=== PATIENT | female | born 1935 | race Caucasian/White ===

== ENCOUNTER 2021-12-29 15:47 | Emergency (ER) | payer OTHER ==
[~2021-12-29] VITALS: Ht 144 cm; Wt 71.7 kg
[2021-12-29 15:56] VITALS: BP 158/89
--- NOTE | 2021-12-29 16:09 | NUR ---
PT AMB WITH ASSISTANCE TO BED 12.
--- NOTE | 2021-12-29 16:44 | NUR ---
BIB DAUGHTER C/O 610 HEAD/NECK PAIN X 2 DAYS. BLOOD SUGAR 145 , BP 158/89 AT THIS TIME. SEEN BY PCP 4 DAYS AGO FOR UTI & GOT CIPRO. PMH: DM, HLD, HTN, [place].
--- NOTE | 2021-12-29 17:06 | NUR ---
pt taken to ct via wheelchair
[2021-12-29] MEDS ORDERED: KETOROLAC 60 MG/2 ML VIAL IM ONE (17:45)
--- NOTE | 2021-12-29 18:28 | NUR ---
Patient appears to be resting comfortably in bed. Vital Signs within normal limits. Respirations even and unlabored.
[2021-12-29] MEDS ORDERED: IBUP-2213 PO (18:54)
[2021-12-29] MEDS ORDERED: ACET-8386 PO (18:54)
--- NOTE | 2021-12-29 19:05 | NUR ---
Patient discharged with v/s stable. Written and verbal after care instructions given and explained. Patient alert, oriented and verbalized understanding of instructions. Ambulatory with daughter to car. All questions addressed prior to discharge. ID band removed. Patient advised to follow up with PMD. Rx of ibuprofen, hydrocodone (sent) given. Patient educated on indication of medication including possible reaction and side effects. Opportunity to ask questions provided and answered. copy of ct given
[2021-12-29 19:18] VITALS: BP 158/89
== END 2021-12-29 19:05 | disposition home or self-care (01) ==
LOC: MED 15:47
DX: S13.4XXA Sprain of ligaments of cervical spine, initial encounter (principal); M79.18 Myalgia, other site; E11.9 Type 2 diabetes mellitus without complications; I10 Essential (primary) hypertension; Z98.890 Other specified postprocedural states; X58.XXXA Exposure to other specified factors, initial encounter; Y92.89 Other specified places as the place of occurrence of the external cause; Y93.89 Activity, other specified; Y99.8 Other external cause status
CPT/HCPCS: 70450; 81002; 96372; 99284; J1885